=== PATIENT | female | born 2000 | race Two or more races ===

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

== ENCOUNTER 2024-11-12 13:39 | Emergency (ER) | payer MEDICAID ==
[~2024-11-12] VITALS: Ht 170.2 cm; Wt 75.0 kg
[2024-11-12] MEDS: LIDOCAINE 1% HCL (LOCAL ANESTH.) INJ 20ML MDV IJ ONE (14:00)
--- NOTE | 2024-11-12 14:47 | ED.PDOC ---
HPI Comments This is a 24-year-old female that comes in with a right leg laceration. She was at home pulling some trash bags to the Street she lifted 1 bag and apparently there was something sharp in it and it cut her right leg. She comes in for laceration repair. No other injury. Tetanus not current. 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 Hx Family History Family History: Reviewed,noncontributory to illness Social History Smoker: Non-Smoker Lives In: Home Integumetry: reports: laceration Physical Exam General Appearance: No Apparent Distress, None, Normal HEENT: Normal ENT Inspection, PERRL/EOMI, Pharynx Normal, TMs Normal Neck: Full Range of Motion, Non-Tender, Normal Inspection Respiratory: Lungs Clear, No Respiratory Distress, Normal Breath Sounds Cardiovascular: Regular Rate/Rhythm Breast Exam: Deferred Gastrointestinal: Non Tender, Soft Genitalia: Deferred Pelvic: Deferred Rectal: Deferred Extremities: Normal range of motion, Tender Neurologic: Alert, None, Normal Mood Cerebellar Function: NOT DONE Reflexes: NOT DONE Skin: Lacerations (Right lower leg 11 cm in length) Lymphatic: No Adenopathy Was a procedure done? Was a procedure done?: Yes Sedation Sedation?: No Informed consent obtained: Yes Laceration Repair : Location Right lower leg just above the ankle Length 11cm Anesthetic: Lidocaine Laceration Repair Prep: Saline, by Irrigation Laceration Repair Wound Comple: epidermis/dermis repair Laceration Repair: Number of sutures (14), Layers Closed, Size (4.0), Nylon Informed consent obtained: Yes Risks, benefits, and alternati: Yes Notes Lidocaine 1% was injected to the wound once anesthesia was obtained the wound was irrigated with copious amounts of saline there was no foreign body found. The wound was then closed in good approximation with 14 stitches wound length is 11 cm. Patient tolerated procedure very well. Differential diagnosis Generic Laceration: Tendon Injury, Avulsion X-Ray, Labs, Meds, VS Vital Signs Date Time Temp Pulse Resp B/P (MAP) Pulse Ox O2 Delivery O2 Flow Rate FiO2 11/12/24 14:14 98.1 94 18 117/73 (88) 98 98.1 X-Ray, Labs, Meds, VS Comment Patient seen examined by me. Patient with extensive laceration to the right lateral ankle. With a good approximation 14 sutures in total tolerated procedure well without any complications. She will also be updated with her tetanus. She will be put in a splint on for the next couple of days to help healing and LEs motion of the ankle.. Patient will need to have sutures removed in day 14. Time of 1ST Reevaluation: 14:46 Reevaluation 1ST: Improved Reevaluation 2ND: Improved Patient Education/Counseling: Diagnosis, Treatment, Prognosis, Need For Follow Up Family Education/Counseling: No Family Present Departure 1 Departure Time of Disposition: 14:48 Impression: Primary Impression: Laceration of leg, right Disposition: 01 HOME / SELF CARE / HOMELESS Condition: Good Additional Instructions: Please limit the use of your foot for the next 2 3 days to help with healing Do not remove the dressing for 48 hours after that you can remove it clean it with some warm water and put topical antibiotic ointment on another dressing on top Sutures come out day 14, you can go to your regular doctor to have them removed e-Prescriptions Ibuprofen Micronized (Ibuprofen) 600 Mg Tab 600 MG PO Q6HPRN PRN for 5 Days, #20 TAB Prov: ANNI GOOD 11/12/24 Discharged With: Self Critical Care Note Critical Care Time?: No Stability Stability form required: No ANNI GOOD UPTWISTER TENDER Nov 12, 2024 14:47
[2024-11-12] MEDS ORDERED: IBUP1TAB5 PO (14:50)
[2024-11-12 15:35] VITALS: BP 123/70; PULSE 79; RESP 16; TEMP 98.7; O2SAT 100
[2024-11-12] MEDS: TETANUS-DIPTH-ACEL PERTUSSIS 0.5ML SYR Tdap IM ONE (15:35)
== END 2024-11-12 15:37 | disposition home or self-care (01) ==
LOC: ER 13:39
DX: S81.811A Laceration without foreign body, right lower leg, initial encounter (principal); W45.8XXA Other foreign body or object entering through skin, initial encounter; Y93.89 Activity, other specified; Y92.89 Other specified places as the place of occurrence of the external cause; Y99.8 Other external cause status
CPT/HCPCS: 12004; 90471; 90715; 99283; J2003